=== PATIENT | male | born 1990 | race Caucasian/White ===

== ENCOUNTER 2017-05-30 13:08 | Emergency (ER) | payer SELFPAY ==
[~2017-05-30] VITALS: Ht 172.7 cm; Wt 65.0 kg
[2017-05-30 16:29] VITALS: BP 114/83
== END 2017-05-30 16:33 | disposition home or self-care (01) ==
LOC: ER 16:03
DX: F19.10 Other psychoactive substance abuse, uncomplicated (principal); F11.10 Opioid abuse, uncomplicated; F15.10 Other stimulant abuse, uncomplicated; F17.200 Nicotine dependence, unspecified, uncomplicated
CPT/HCPCS: 93005; 99283